=== PATIENT | female | born 2000 | race Caucasian/White ===

== ENCOUNTER 2023-01-10 20:51 | Emergency (ER) | payer SELFPAY ==
[2023-01-10] MEDS ORDERED: MAGNES/ALUMIN/SIMET 30ML UCUP ONE (21:25)
[2023-01-10] MEDS ORDERED: LIDOCAINE VISCOUS 2% SOLN 15 ML UDC ONE ×2 (21:25→21:31)
[2023-01-10] MEDS ORDERED: NA CHLORIDE 0.9% 1,000 ML ONE (21:25)
[2023-01-10 21:41] LABS: Urine Blood Negative (Negative); Urine Glucose Negative (Negative); Urine Protein Negative (Negative); Urine Specific Gravity 1.015 (1.005-1.030)
[2023-01-10 21:53] LABS: Absolute Lymphocytes (CBC) 1.9 K/uL (0.7-4.9); Hematocrit 37.6 % (36.0-45.0); Lymphocytes % 28.6 % (15.3-44.8); MCV 92.9 fL (80-100); MPV 10.3 fL (7.6-11.3); RBC Red Blood Cell Count 4.05 M/uL (3.86-4.86)
[2023-01-10 22:11] LABS: Potassium 3.6 mEq/L (3.5-5.1)
--- NOTE | 2023-01-10 22:50 | ER ---
Nurse's Notes [facility] Name: Therese Muniz Age: 22 yrs Sex: Female : 2000 Arrival Date: 01/10/2023 Time: 20:52 Bed 2 Private MD: Diagnosis: Laryngeal spasm; state, incidental Presentation: 01/10 20:46 Chief complaint: Patient states: C/O possible allergic reaction with throat tightness pf1 and epigastric pain of 6 with vomiting x 6 episodes,onset 1 hour [employer]. Patient stated was eating at a friends house and has a food allergy to peanuts. 20:46 Coronavirus screen: Vaccine status: Patient reports being unvaccinated. Client denies pf1 travel out of the [place] in the last 14 days. At this time, the client does not indicate any symptoms associated with coronavirus-19. Ebola Screen: Patient negative for fever greater than or equal to 101.5 degrees Fahrenheit, and additional compatible Ebola Virus Disease symptoms. Initial Sepsis Screen: Does the patient meet any 2 criteria? No. Patient's initial sepsis screen is negative. Does the patient have a suspected source of infection? No. Patient's initial sepsis screen is negative. Risk Assessment: Do you want to hurt yourself or someone else? Patient reports no desire to harm self or others. Onset of symptoms was January 10, 2023. 20:46 Method Of Arrival: EMS: [facility] pf1 20:46 Acuity: LETTY 3 pf1 Assessment: 20:46 General: Appears in no apparent distress. uncomfortable, well groomed, well developed, pf1 Behavior is cooperative, appropriate for age, anxious. 20:46 Pain: Complains of pain in tightness to throat and epigastric pain of 6,onset 1 hour pf1 [employer] Pain currently is 6 out of 10 on a pain scale. Vital Signs: 20:46 BP 101 / 75; Pulse 94; Resp 18; Temp 99.3; Pulse Ox 100% on R/A; Weight 77.11 kg; pf1 Height 5 ft. 10 in. ; Pain 6/10; 20:46 Body Mass Index 24.39 (77.11 kg, 177.8 cm) pf1 20:46 Pain Scale: Adult pf1 ED Course: 20:52 Patient arrived in ED. ds4 20:53 Darlene Ham FNP-C [facility]. snw 20:53 Taj Thomas DO is Attending Physician. snw 21:09 Natalie todd, RN is Primary Nurse. pf1 21:12 Triage completed. pf1 21:39 Abo/rh Typing Sent. pf1 21:39 Basic Metabolic Panel Sent. pf1 21:39 CBC with Diff Sent. pf1 21:39 Quantitative Hcg Sent. pf1 21:39 Test, Serum Sent. pf1 21:41 Urine obtained. Urine : positive. pf1 Administered Medications: 21:23 Drug: GI Cocktail without - (Maalox PO Suspension 30 ml, Lidocaine Mucous pf1 Membrane Liquid 2 % 15 ml) Route: PO; 21:24 Drug: NS 0.9% IV 1000 ml Route: IV; Rate: 1 bolus; Site: right antecubital; pf1 Outcome: 22:50 Discharge ordered by . snw Signatures: Darlene Ham FNP-C [employer]PERATOR-Csnw Parviz Cruz ds4 Natalie todd, RN RN pf1
--- NOTE | 2023-01-10 22:50 | EDPHYS ---
Physician Documentation [facility] Name: Therese Muniz Age: 22 yrs Sex: Female : 2000 Arrival Date: 01/10/2023 Time: 20:52 Bed 2 Private MD: ED Physician Taj Thomas HPI: 01/10 21:32 This 22 yrs old Female presents to ER via EMS with complaints of vomited blood. snw 21:32 The patient presents with abdominal pain in the epigastric area. Onset: The snw symptoms/episode began/occurred suddenly, just prior to arrival. The symptoms do not radiate. Associated signs and symptoms: Pertinent positives: epigastric pain, tightness in the throat, vomited food and blood. The symptoms are described as crampy. Severity of pain: At its worst the pain was mild moderate. The patient has experienced a previous episode. It is unknown whether or not the patient has recently seen a physician. pt thinks she is 6-7 weeks and is concerned about the because of cramping. ROS: 21:30 Constitutional: Negative for fever, chills, and weight loss, Eyes: Negative for injury, snw pain, redness, and discharge, ENT: Negative for injury, pain, and discharge, pt felt like she was going to have "anaphylaxis" and went to put finger down her throat to vomit. Vomited food and blood. Pt states she is allergic to peanuts and peas and Latex. When she ate dinner she felt her throat tighten and the roof of her mouth started to itch Neck: Negative for injury, pain, and swelling, Cardiovascular: Negative for chest pain, palpitations, and edema, Respiratory: Negative for shortness of breath, cough, wheezing, and pleuritic chest pain, Abdomen/GI: Negative for abdominal pain, nausea, vomiting, diarrhea, and constipation, Back: Negative for injury and pain, : Negative for injury, bleeding, discharge, and swelling, MS/Extremity: Negative for injury and deformity, Skin: Negative for injury, rash, and discoloration, Neuro: Negative for headache, weakness, numbness, tingling, and seizure, Psych: Negative for depression, anxiety, suicide ideation, homicidal ideation, and hallucinations. Exam: 21:08 Constitutional: This is a well developed, well nourished patient who is awake, alert, snw and in no acute distress. Head/Face: Normocephalic, atraumatic. Eyes: Pupils equal round and reactive to light, extra-ocular motions intact. Lids and lashes normal. Conjunctiva and sclera are non-icteric and not injected. Cornea within normal limits. Periorbital areas with no swelling, redness, or edema. Neck: Trachea midline, no thyromegaly or masses palpated, and no cervical lymphadenopathy. Supple, full range of motion without nuchal rigidity, or vertebral point tenderness. No Meningismus. Chest/axilla: Normal chest wall appearance and motion. Nontender with no deformity. No lesions are appreciated. Cardiovascular: Regular rate and rhythm with a normal S1 and S2. No gallops, murmurs, or rubs. Normal PMI, no JVD. No pulse deficits. Respiratory: Lungs have equal breath sounds bilaterally, clear to auscultation and percussion. No rales, rhonchi or wheezes noted. No increased work of breathing, no retractions or nasal flaring. Abdomen/GI: Soft, non-tender, with normal bowel sounds. No distension or tympany. No guarding or rebound. No evidence of tenderness throughout. Back: No spinal tenderness. No costovertebral tenderness. Full range of motion. Skin: Warm, dry with normal turgor. Normal color with no rashes, no lesions, and no evidence of cellulitis. MS/ Extremity: Pulses equal, no cyanosis. Neurovascular intact. Full, normal range of motion. Neuro: Awake and alert, GCS 15, oriented to person, place, time, and situation. Cranial nerves II-XII grossly intact. Motor strength 5/5 in all extremities. Sensory grossly intact. Cerebellar exam normal. Normal gait. Psych: Awake, alert, with orientation to person, place and time. Behavior, mood, and affect are within normal limits. 21:08 ENT: Nares patent. No nasal discharge, no septal abnormalities noted. Tympanic membranes are normal and external auditory canals are clear. Oropharynx with no redness, swelling, or masses, exudates, or evidence of obstruction, uvula midline. Mucous membranes moist. Vital Signs: 20:46 BP 101 / 75; Pulse 94; Resp 18; Temp 99.3; Pulse Ox 100% on R/A; Weight 77.11 kg; pf1 Height 5 ft. 10 in. ; Pain 6/10; 20:46 Body Mass Index 24.39 (77.11 kg, 177.8 cm) pf1 20:46 Pain Scale: Adult pf1 MDM: 20:53 Patient medically screened. w 01/10 20:54 Order name: IV Saline Lock; Complete Time: 21:13 w 01/10 20:54 Order name: Labs collected and sent; Complete Time: 21:36 w 01/10 20:54 Order name: NPO; Complete Time: 21:31 w 01/10 20:54 Order name: Urine Dipstick-Ancillary (obtain specimen); Complete Time: 21:36 01/10 21:02 Order name: US Transvaginal Ob 01/10 20:54 Order name: CBC with Diff; Complete Time: 21:57 01/10 20:54 Order name: Test, Serum; Complete Time: 22:03 01/10 20:54 Order name: Quantitative Hcg; Complete Time: 22:11 01/10 20:54 Order name: Basic Metabolic Panel; Complete Time: 22:11 01/10 20:54 Order name: Abo/rh Typing; Complete Time: 22:27 01/10 21:41 Order name: Urine Dipstick-Ancillary; Complete Time: 21:44 EDMS EC:08 Rate is 81 beats/min. Rhythm is regular. QRS [place] is Normal. DC interval is normal. QRS snw interval is normal. QT interval is normal. No Q waves. Clinical impression: Normal ECG. Administered Medications: 21:23 Drug: GI Cocktail without - (Maalox PO Suspension 30 ml, Lidocaine Mucous pf1 Membrane Liquid 2 % 15 ml) Route: PO; 21:24 Drug: NS 0.9% IV 1000 ml Route: IV; Rate: 1 bolus; Site: right antecubital; pf1 Disposition Summary: 01/10/23 22:50 Discharge Ordered Location: Home snw Condition: Stable snw Diagnosis - Laryngeal spasm snw - state, incidental snw Followup: snw - With: Emergency Department - When: As needed - Reason: Worsening of condition Followup: snw - With: Private Physician - When: 2 - 3 days - Reason: Recheck today's complaints, Continuance of care, Re-evaluation by your physician Forms: - Medication Reconciliation Form snw - Thank You Letter snw - Antibiotic Education snw - Prescription Opioid Use snw Signatures: Dispatcher [employer] Darlene Danielson FNP-C PARAS-Csnw Natalie todd, RN RN pf1
[2023-01-11 03:07] VITALS: O2SAT 100
[2023-01-11 03:09] VITALS: BP 115/81; TEMP 98.9
--- NOTE | 2023-01-13 17:40 | EKG ---
Test Date: 2023-01-10 Test Time: 21:05:29 Network Design Architect: MARY MEASUREMENT RESULTS: Intervals: Rate: 81 VT: 148 QRSD: 90 QT: 394 QTc: 457 [place]: P: 59 VT: 148 QRS: 47 T: 35 INTERPRETIVE STATEMENTS: Normal sinus rhythm Normal ECG No previous ECG available for comparison Electronically Signed On 01-13-23 17:36:34 CDT by Ethan Rosario
== END 2023-01-10 23:12 | disposition home or self-care (01) ==
LOC: ER 20:51
DX: J38.5 Laryngeal spasm (principal); Z33.1 Pregnant state, incidental
CPT/HCPCS: 36415; 80048; 81003; 84702; 84703; 85025; 86900; 86901; 93005; 96360; 99283; J7030